=== PATIENT | male | born 1945 | race Caucasian/White ===

== ENCOUNTER 2019-12-18 09:55 | Outpatient (RCR) | payer MEDICARE, OTHER ==
[2019-12-15 11:36] VITALS: BP 160/81
[~2019-12-18] VITALS: Ht 172.7 cm; Wt 82.3 kg
[~2019-12-18 09:55] MED LIST: LEUPROLIDE 22.5 MG SYRINGE (ELIGARD) SQ NR
[2019-12-18 10:00] VITALS: BP 172/86
[2019-12-18] MEDS ORDERED: LEUPROLIDE 22.5 MG SYRIN(ELIGARD) SQ ONE (10:15)
== END 2019-12-18 10:25 | disposition home or self-care (01) ==
LOC: SDC 09:55
PROVIDERS: ATTEND Family Medicine
DX: C61 Malignant neoplasm of prostate (principal)
CPT/HCPCS: 90471; 96372